=== PATIENT | female | born 1950 | race Caucasian/White ===

== ENCOUNTER 2024-04-29 10:54 | Outpatient (AMB) | payer MEDICARE, SELFPAY ==
--- NOTE | 2024-04-29 10:58 | MHC.OFFWIV ---
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 HPI Details This is a 73-year-old female patient who presents today with a one-week history of itchy and red vaginal area. She reports some mild frequency of urination, however denies any dysuria. States that she has tried to use Vaseline and Vagisil at home without relief. Her labia, inside her vagina, and surrounding area are red and itchy. She denies any significant vaginal discharge or odor. [facility] Social History Patient Tobacco Use Status: Never used Tobacco Review of Systems Const All systems reviewed & are unremarkable except as noted in HPI and below Physical Exam Vital Signs: Last Vital Signs Temp 97.2 F 04/29/24 11:32 Pulse 86 04/29/24 11:32 BP 110/80 04/29/24 11:32 Pulse Ox 96 04/29/24 11:32 Oxygen Delivery Method Room Air 04/29/24 11:32 BMI result Body Mass Index 37.2 Const General: cooperative and no acute distress HEENT Head: Yes normal to inspection Neck Neck: Yes no lymphadenopathy Resp Effort & Inspection: normal respiratory effort General: Yes bladder normal to palpation and Yes no CVA tenderness Bimanual exam- vagina & uterus: bladder normal to palpation OB/external & speculum: Deferred OB/external & speculum exam Back/Spine/Pelvis Back: no CVA tenderness Extrem General: Yes capillary refill normal and Yes no clubbing, cyanosis or edema Psych Appearance: grossly normal Mental Status: mental status grossly normal Speech and movement: Normal speech and movement present Assessment & Plan Assessment & Plan (1) Yeast infection involving the vagina and surrounding area: Code(s): B37.31 - Acute candidiasis of vulva and vagina Plan: Urine dip was negative. Patient declines BV swab today. Symptoms are consistent with vulvovaginal yeast infection. She would prefer oral medication - I will start her on Fluconazole. We reviewed indications, use, possible s/e of meds. Reviewed vaginal health routines to avoid mike. She is going to try some topical witch carlos as well. If she does not improve with treatment or if symptoms worsen, she will return to the clinic. Patient verbalizes understanding and agrees to plan. Medications: New fluconazole may repeat second dose 72 hrs after first dose if symptoms persist 150 mg PO Q3D 2 tabs 0RF Coding Level of Care Code Est Pt Level 4 (34234) Diagnoses Yeast infection involving the vagina and surrounding area B37.31
[2024-04-29 11:32] VITALS: BP 110/80; PULSE 86; TEMP 36.2; O2SAT 96; BMI 37.2
== END 2024-04-29 12:10 | disposition home or self-care (01) ==
PROVIDERS: PCP Internal Medicine; Visit Provider Nurse Practitioner Family
DX: B37.31 Acute candidiasis of vulva and vagina (principal)
CPT/HCPCS: 81003; 99214